=== PATIENT | male | born 1995 | race African-American/Black ===

== ENCOUNTER 2018-04-07 09:25 | Emergency (ER) | payer MEDICAID | END 2018-04-07 09:32 | disposition left against medical advice (07) | LOC: ER 09:25 | DX: Z00.8 Encounter for other general examination (principal); Z53.21 Procedure and treatment not carried out due to patient leaving prior to being seen by health care provider ==

== ENCOUNTER 2023-07-20 17:46 | Emergency (ER) | payer MEDICAID ==
[~2023-07-20] VITALS: Ht 177.8 cm; Wt 86.1 kg
[2023-07-20 18:39] LABS: STREP A SCREEN NEGATIVE (Neg)
[2023-07-20] MEDS ORDERED: CEFD300C3 PO (19:37)
[2023-07-20] MEDS ORDERED: dexamethasone sod phosphate 10mg/ml inj IM STA (19:38)
[2023-07-20] MEDS ORDERED: dexamethasone sod phosphate 10mg/ml inj PO STA (19:43)
[2023-07-20 19:52] VITALS: BP 140/88; PULSE 81; RESP 16; TEMP 99.1; O2SAT 96
== END 2023-07-20 20:31 | disposition home or self-care (01) ==
LOC: ER 17:47
DX: J35.1 Hypertrophy of tonsils (principal); Z20.822 Contact with and (suspected) exposure to COVID-19
CPT/HCPCS: 36415; 87081; 87811; 87880; 99283; J1100